=== PATIENT | female | born 1970 | race Caucasian/White ===

== ENCOUNTER 2018-06-19 07:40 | Emergency (ER) | payer SELFPAY ==
[~2018-06-19] VITALS: Ht 157.5 cm; Wt 61.0 kg
[2018-06-19] MEDS ORDERED: KETOROLAC 30MG/ML VIAL IV STA (09:29)
[2018-06-19] MEDS ORDERED: SODIUM CHLORIDE 0.9% 1,000 ML IV ONE (09:29)
[2018-06-19 09:47] LABS: KETONES URINE TRACE (NEGATIVE); LEUKOCYTE ESTERASE URINE 1+ (NEGATIVE); NITRITE URINE POSITIVE (NEGATIVE); OCCULT BLOOD URINE 3+ (NEGATIVE); PH URINE 5.5 (4.5-8.0); PROTEIN URINE 2+ (NEGATIVE)
[2018-06-19 09:57] LABS: BASOPHILS % 0.5 % (0.0-2.0); EOSINOPHILS % 2.4 % (0.0-5.0); HEMATOCRIT. 47.6 % (36.0-48.0); HEMOGLOBIN. 16.3 g/dL (12.0-16.0); LYMPHOCYTES % 23.9 % (20.0-50.0); MEAN CORPUSCULAR HEMOGLOBIN 31.5 pg (28.0-32.0); MEAN CORPUSCULAR VOLUME 92.3 fL (81.0-99.0); MEAN PLATELET VOLUME 8.8 fl (7.4-10.4); MONOCYTES % 7.7 % (2.0-8.0); NEUTROPHILS % 65.5 % (40.0-76.0); PLATELET 239 x1000/uL (130-400); RED BLOOD CELL COUNT 5.16 mill/uL (4.2-5.4); RED CELL DISTRIBUTION WIDTH 13.6 % (11.6-14.6)
[2018-06-19 10:01] LABS: CLARITY URINE CLOUDY (CLEAR); COLOR URINE DARK YELLOW (YELLOW)
[2018-06-19 10:01] LABS: CHLORIDE 103 mEq/L (98-107)
[2018-06-19 10:04] LABS: HCG SCREEN NEGATIVE
[2018-06-19] MEDS ORDERED: CEFTRIAXONE 1 G PREMIX 50 ML IV ONE (10:15)
[2018-06-19 10:55] VITALS: BP 134/85
== END 2018-06-19 11:02 | disposition home or self-care (01) ==
LOC: ER 08:08
DX: N10 Acute pyelonephritis (principal); K80.20 Calculus of gallbladder without cholecystitis without obstruction; R31.9 Hematuria, unspecified; Z87.440 Personal history of urinary (tract) infections
CPT/HCPCS: 36415; 74176; 80053; 81003; 81025; 83605; 83690; 84703; 85025; 85610; 87077; 87086; 87186; 96361; 96365; 96375; 99285; J0696; J1885; J7030